=== PATIENT | female | born 1950 | race African-American/Black ===

== ENCOUNTER 2017-05-14 15:42 | Emergency (ER) | payer OTHER ==
[~2017-05-14] VITALS: Ht 165.1 cm; Wt 78.0 kg
[~2017-05-14 15:42] MED LIST: AMLO5TAB4; HCTZ; VALS40TA4
[2017-05-14 22:18] VITALS: BP 127/68
== END 2017-05-14 22:28 | disposition home or self-care (01) ==
LOC: ER 18:10
DX: R09.81 Nasal congestion (principal); B34.9 Viral infection, unspecified; E11.9 Type 2 diabetes mellitus without complications; E78.00 Pure hypercholesterolemia, unspecified; I10 Essential (primary) hypertension; Z88.8 Allergy status to other drugs, medicaments and biological substances
CPT/HCPCS: 71045; 87804; 99285

== ENCOUNTER 2019-04-18 23:38 | Emergency (ER) | payer OTHER ==
[~2019-04-18] VITALS: Ht 165.1 cm; Wt 73.0 kg
[2019-04-19 00:59] VITALS: BP 198/94
== END 2019-04-19 01:55 | disposition home or self-care (01) ==
LOC: ER 23:38
DX: I16.0 Hypertensive urgency (principal); I10 Essential (primary) hypertension; E11.9 Type 2 diabetes mellitus without complications; Z88.8 Allergy status to other drugs, medicaments and biological substances; Z79.899 Other long term (current) drug therapy
CPT/HCPCS: 82962; 93005; 99283

== ENCOUNTER 2020-07-28 00:29 | Emergency (ER) | payer OTHER ==
[~2020-07-28] VITALS: Ht 165.1 cm; Wt 71.0 kg
[2020-07-28] MEDS ORDERED: LORATADINE 10MG TABLET PO STA ×2 (01:10→01:43)
[2020-07-28] MEDS ORDERED: FAMOTIDINE 20MG TABLET PO STA (01:10)
[2020-07-28] MEDS ORDERED: PREDNISONE 20MG TABLET PO ONE (01:15)
[2020-07-28] MEDS ORDERED: SODIUM CHLORIDE 0.9% 1,000 ML IV ONE (01:45)
[2020-07-28] MEDS ORDERED: METHYLPREDNISOLONE SOD SUCC 125 MG/2 ML VIAL IV ONE (01:45)
[2020-07-28] MEDS ORDERED: FAMOTIDINE 20MG/2ML VIAL IV ONE (01:45)
[2020-07-28] MEDS ORDERED: LORA10TA7 MT (04:09)
[2020-07-28] MEDS ORDERED: FAMO40TA7 MT (04:09)
[2020-07-28] MEDS ORDERED: P50 MT (04:09)
[2020-07-28 05:30] VITALS: BP 141/75
== END 2020-07-28 05:30 | disposition home or self-care (01) ==
LOC: ER 00:29
DX: L50.9 Urticaria, unspecified (principal); E86.0 Dehydration; I10 Essential (primary) hypertension; J45.909 Unspecified asthma, uncomplicated; Z98.890 Other specified postprocedural states; Z91.041 Radiographic dye allergy status
CPT/HCPCS: 96361; 96374; 96375; 99284; J2930; J3490; J7030

== ENCOUNTER 2021-08-19 14:24 | Emergency (ER) | payer OTHER ==
[~2021-08-19] VITALS: Ht 165.1 cm; Wt 74.0 kg
[~2021-08-19 14:24] MED LIST changes: +FAMO40TA7 MT; +LORA10TA7 MT; +P50 MT
[2021-08-19 14:36] VITALS: BP 168/82
[2021-08-19 16:38] LABS: CLARITY URINE CLEAR (CLEAR); COLOR URINE YELLOW (YELLOW); KETONES URINE NEGATIVE (NEGATIVE); LEUKOCYTE ESTERASE URINE 2+ (NEGATIVE); NITRITE URINE NEGATIVE (NEGATIVE); OCCULT BLOOD URINE TRACE (NEGATIVE); PROTEIN URINE NEGATIVE (NEGATIVE); SPECIFIC GRAVITY URINE 1.006 (1.005-1.030); UROBILINOGEN URINE 0.2 E.U./dL (0.2-1.0)
[2021-08-19] MEDS ORDERED: NITR-87 MT (17:25)
== END 2021-08-19 17:31 | disposition home or self-care (01) ==
LOC: ER 14:24
DX: N30.90 Cystitis, unspecified without hematuria (principal); I10 Essential (primary) hypertension
CPT/HCPCS: 81003; 99283